=== PATIENT | male | born 1950 | race Asian ===

== ENCOUNTER 2022-01-31 05:15 | Day surgery (SDC) | payer OTHER, BC, SELFPAY ==
[2022-01-29 10:43] LABS: BASOPHILS % (AUTO) 0.5 % (0.0-2.0); EOSINOPHILS % (AUTO) 0.6 % (0.0-4.0); HEMATOCRIT 42.4 % (36-54); HEMOGLOBIN 13.6 g/dL (14.0-18.0); LYMPHOCYTES # (AUTO) 0.7 K/uL (1.0-5.5); LYMPHOCYTES % (AUTO) 15.8 % (20.5-51.5); MEAN CORPUSCULAR HEMOGLOBIN 26 pg (27-31); MEAN CORPUSCULAR HGB CONC 32 % (32-36); MEAN CORPUSCULAR VOLUME 80 fL (79.0-98.0); MONOCYTES # (AUTO) 0.5 K/uL (0.0-1.0); MONOCYTES % (AUTO) 10.6 % (1.7-9.3); NEUTROPHILS # (AUTO) 3.4 K/uL (1.8-7.7); NEUTROPHILS % (AUTO) 72.5 % (40.0-70.0); PLATELET COUNT (AUTO) 192 K/uL (130-430); RED CELL DISTRIBUTION WIDTH 14.8 % (9.0-15.0); WHITE BLOOD COUNT (AUTO) 4.7 K/uL (4.8-10.8)
[2022-01-29 10:49] LABS: ALANINE AMINOTRANSFERASE 31 U/L (12-78); ALBUMIN 3.7 g/dL (3.4-4.8); ANION GAP 9 (5-15); ASPARTATE AMINOTRANSFERASE 19 U/L (10-37); CALCIUM 8.4 mg/dL (8.4-11.0); CHLORIDE 102 mmol/L (98-107); CREATININE 0.81 mg/dL (0.55-1.30); GLUCOSE 106 mg/dL (70-99); POTASSIUM 3.8 mmol/L (3.5-5.1); SODIUM SERUM 138 mmol/L (136-145); TOTAL BILIRUBIN 0.4 mg/dL (0.0-1.0); UREA NITROGEN, BLOOD 18 mg/dL (8-21)
[~2022-01-31] VITALS: Ht 170.2 cm; Wt 56.7 kg
[2022-01-31] MEDS ORDERED: cefTRIAXone 1 GM IVPB PREMIX 50 ML IV ONE (07:43)
[2022-01-31] MEDS ORDERED: DEXAMETHASONE SOD PHOSPHATE 4 MG/ML VIAL ONE (07:53)
[2022-01-31] MEDS ORDERED: SEVOFLURANE 15 MIN GAS INH ONE (07:53)
[2022-01-31] MEDS ORDERED: KETOROLAC TROMETHAMINE 30 MG VIAL ONE (07:53)
[2022-01-31] MEDS ORDERED: LIDOCAINE 1% 10 MG/ML, 20 ML MDV ONE (07:53)
[2022-01-31] MEDS ORDERED: fentaNYL CITRATE 250 MCG/5 ML AMP ONE (07:53)
[2022-01-31] MEDS ORDERED: ePHEDrine sulfate 50 MG/ML VIAL ONE (07:53)
[2022-01-31] MEDS ORDERED: ROCURONIUM BROMIDE 10 MG/ML (ZEMURON) ONE (07:53)
[2022-01-31] MEDS ORDERED: LR 1,000 ML IV.SOLN IV ONE (07:53)
[2022-01-31] MEDS ORDERED: PROPOFOL 200MG/ 20ML VIAL (DIPRIVAN) IV ONE (07:53)
[2022-01-31] MEDS ORDERED: NS 1000 ML IV.SOLN IV ONE (07:53)
[2022-01-31] MEDS ORDERED: METOCLOPRAMIDE HCL 10 MG/2 ML VIAL ONE (07:53)
[2022-01-31] MEDS ORDERED: MIDAZOLAM HCL 2 MG/2 ML VIAL (VERSED) ONE (07:53)
[2022-01-31] MEDS ORDERED: ONDANSETRON HCL 4 MG/2 ML VIAL ONE ×2 (07:53→11:12)
[2022-01-31 10:18] VITALS: BP_SYST 118
[2022-01-31] MEDS ORDERED: MEPERIDINE 100 MG INJ. 100 MG/ML VIAL ONE (11:01)
[2022-01-31] MEDS: ONDANSETRON HCL 4 MG/2 ML VIAL IVP ONE (11:23)
[2022-01-31] MEDS: MEPERIDINE HCL/PF 25 MG/ML DISP.SYRIN IVP ONE (11:25)
== END 2022-01-31 14:50 | disposition home or self-care (01) ==
LOC: SMU 05:15 → SDS 05:15
PROVIDERS: ATTEND Urology
DX: N21.0 Calculus in bladder (principal); R97.20 Elevated prostate specific antigen [PSA]; N40.1 Benign prostatic hyperplasia with lower urinary tract symptoms; Z20.822 Contact with and (suspected) exposure to COVID-19; Z79.899 Other long term (current) drug therapy
CPT/HCPCS: 36415; 71046-TC; 80053; 82360; 85025; 88300; 93005; J0696; J1100; J1885; J2001; J2175; J2405; J2704; J2765; J3010; J3465; J7030; J7120; U0003